=== PATIENT | male | born 1955 | race African-American/Black ===

== ENCOUNTER 2023-05-06 12:39 | Outpatient (REF) | payer OTHER, SELFPAY ==
[2023-05-06 14:55] LABS: MANUAL DIFF FLAG NO
[2023-05-06 15:00] LABS: Basophils Percent Auto 0.5 % (0-2); Eosinophils Absolute Auto 0.1 X10*3/uL (0.0-0.4); Eosinophils Percent Auto 1.7 % (0-4); Hematocrit 38.7 % (42.0-52.0); Hemoglobin 12.8 g/dl (14.0-18.0); Imm Gran Abs Auto 0.05 X10*3/uL (0.00-0.03); Imm Gran Pct Auto 0.8 % (0.0-0.4); Lymphocytes Absolute Auto 1.6 X10*3/uL (1.2-4.9); Lymphocytes Percent Auto 27.1 % (20-40); Mean Corpuscular HGB Conc 33.1 g/dl (31.0-36.0); Mean Corpuscular Hemoglobin 28.9 pg (27.0-33.0); Mean Corpuscular Volume 87.4 fL (80.0-98.0); Mean Platelet Volume 12.2 fL (9.4-12.4); Monocytes Absolute Auto 0.7 X10*3/uL (0.1-1.2); Monocytes Percent Auto 12.2 % (2-11); Neutrophils Absolute Auto 3.5 x10*3/uL (2.0-8.3); Neutrophils Percent Auto 57.7 % (45-73); Platelet Count 195 X10*3/uL (160-400); Red Blood Count 4.43 X10*6/uL (4.60-5.80); White Blood Count 6.1 X10*3/uL (4.8-10.8)
[2023-05-06 15:02] LABS: Appearance Urine Clear; Color Urine Yellow; Glucose Urine UA >=1000 mg/dL (Negative); Leukocyte Esterase Urine Negative (Negative); Nitrite Urine Negative (Negative); PH 5.5 (5.0-9.0); Specific Gravity - Urine >= 1.030 (1.005-1.025); UMIC TRIGGER UA YES; Urine Blood Negative (Negative); Urine Ketones Negative (Negative); Urine Protein Negative (Neg-Trace)
[2023-05-06 15:19] LABS: Bacteria Urine None Seen (None Seen); Hyaline Casts Urine 0-2 /LPF (0-2); RBC Urine 0-2 /HPF (0-2); Squamous Epithelial Cell Urine 0-2 /HPF (0-2); WBC Urine 0-5 /HPF (0-5)
[2023-05-06 15:32] LABS: Alanine Aminotransferase 25 U/L (0-40); Albumin Level 4.3 g/dL (3.5-5.0); Alkaline Phosphatase 122 U/L (39-117); Anion Gap 15 (12-20); Aspartate Amino Transferase 23 U/L (5-37); Bilirubin Direct 0.2 mg/dL (0.0-0.5); Bilirubin Total 0.5 mg/dL (0.0-1.0); Blood Urea Nitrogen 16 mg/dL (9-16); Calcium 9.3 mg/dL (8.4-10.2); Carbon Dioxide 23 mmol/L (22-29); Chloride 96 mmol/L (96-108); Cholesterol 148 mg/dL (<200); Estimated Glomerular Filt Rate 54; Glucose Random 619 mg/dL (60-115); HDL Cholesterol 30 mg/dL (>40); LDL Cholesterol Calculated 39 mg/dL (<100); Potassium 4.8 mmol/L (3.3-5.1); Sodium 129 mmol/L (135-145); Total Protein 7.7 g/dL (6.5-8.0); Triglycerides 397 mg/dL (<150)
[2023-05-06 15:33] LABS: Creatinine Urine 37.47 mg/dL; Total Protein Urine Random < 7 mg/dL (<12)
== END 2023-05-06 12:40 | disposition home or self-care (01) ==
LOC: HO.CHCLDS 12:39
PROVIDERS: Visit Provider Internal Medicine
DX: E11.65 Type 2 diabetes mellitus with hyperglycemia (principal)
CPT/HCPCS: 36415; 80048; 80061; 80076; 81001; 82570; 84156; 85025

== ENCOUNTER 2025-04-09 09:26 | Outpatient (REF) | payer OTHER, SELFPAY ==
--- OUTSIDE RECORDS SUMMARY | 2025-04-05 08:45 | XMS_ITS | Encounter Summary ---
Author Organization [employer] Address [address] [facility] [address] [place] [address] Care Team Providers Care Conciliator Name Role Phone Yaya Alcazar MD Unavailable + Yaya Alcazar MD Primary Care Prov ider Encounter Details Date Type Department Care Team (Late st Contact Info) Description 04/05/2025 8:45 AM EDT Office Visit [facility] PEDS [address], [place] [phone] Yyaa Alcazar MD [address] [place], [place] [phone] Primary hypertension; Type 2 diabetes mellitus with hyperglycemia, without long-term current use of insulin ([facility]); Dietary counseling; Exercise counseling Social History Tobacco Use Types Packs/Day Years Used Date Smoking Tobacco: Never Passive Smoke Exposure: Never Smokeless Tobacco: Never Alcohol Use Standard Drinks/Week Comments Never 0 (1 standard drink = 0.6 oz pur e alcohol) Depression Answer Date Recorded Patient Health Questionnaire-9 Score 0 10/15/2022 Housing Stability Answer Date Recorded What is your housing situation today? I have sharri hayes 05/05/[address] you li ve. Do you have problems with any of the following? None of the above 05/05/2023 Food Insecurity Answer Date Recorded Within the past 12 months, y ou worried that your food would run out before you got money to buy more: Never True 05/05/2023 Within the past 12 months,th e food you bought just didn't last and you didn't have enough money to get more: Never True Transportation Answer Date Recorded In the past 12 months, has l ack of transportation kept you from medical appts, meetings, work or from getting things needed for daily living? No 05/05/2023 Utilities Answer Date Recorded In the past 12 months, has t he electric, gas, oil or water company threatened to shut off services in your home? No 05/05/2023 Depression Answer Date Recorded Patient Health Questionnaire-2 Score 0 10/15/2022 Sex and Gender Information Value Date Recorded Sex Assigned at Male 05/10/2022 10:36 AM EDT Legal Sex Male 10:36 AM EDT Gender Identity Male 05/10/2022 10:36 AM EDT Sexual Orientation Straight 05/10/2022 10 :36 AM EDT documented as of this encounter Last Filed Vital Signs Vital Sign Reading Time Taken Comments Blood Pressure 144/70 04/05/2025 9:15 AM EDT Pulse 80 04/05/2025 9:15 AM EDT Temperature 36.9 C (98.4 F) 04/05/2025 9:15 AM EDT Respiratory Rate 20 04/05/2025 9:15 AM EDT Oxygen Saturation - - Inhaled Oxygen Concentration - - Weight 105 kg (231 lb) 04/05/2025 9:15 AM EDT Height 175.3 cm (5' 9 ) 04/05/2025 9:15 AM EDT Body Mass Index 34.11 04/05/2025 9:15 AM EDT documented in this encounter Progress Notes * Yaya Hubbard MD - 04/05/2025 8:45 AM EDT Subjective Patient ID: Garrison Blackman is a 70 y.o. male who presents for No chief complaint on file.. Hypertension This is a chronic problem. The problem is controlled. Pertinent negatives include no chest pain, headaches, palpitations or shortness of breath. Review of Systems Respiratory: Negative for shortness of breath. Cardiovascular: Negative for chest pain and palpitations. Neurological: Negative for headaches. Objective Physical Exam Constitutional: Appearance: Normal appearance. HENT: Right Ear: Tympanic membrane, ear canal and external ear normal. There is no impacted cerumen. Left Ear: Tympanic membrane, ear canal and external ear normal. There is no impacted cerumen. Cardiovascular: Rate and Rhythm: Normal rate and regular rhythm. Pulses: Dorsalis pedis pulses are 1+ on the right side and 1+ on the left side. Posterior tibial pulses are 1+ on the right side and 1+ on the left side. Heart sounds: No murmur heard. Pulmonary: Effort: Pulmonary effort is normal. No respiratory distress. Breath sounds: No stridor. No wheezing or rhonchi. Abdominal: General: Abdomen is flat. There is no distension. Palpations: There is no mass. Tenderness: There is no abdominal tenderness. There is no guarding or rebound. Hernia: No hernia is present. Musculoskeletal: General: No swelling or tenderness. Normal range of motion. Cervical back: Normal range of motion. No rigidity or tenderness. Right foot: Normal range of motion. No deformity or foot drop. Left foot: Normal range of motion. No deformity or foot drop. Feet: Right foot: Protective Sensation: 7 sites tested. 7 sites sensed. Skin integrity: No ulcer, blister, callus or fissure. Toenail Condition: Fungal disease present. Left foot: Protective Sensation: 7 sites tested. 7 sites sensed. Skin integrity: No ulcer, blister, callus or fissure. Toenail Condition: Fungal disease present. Lymphadenopathy: Cervical: No cervical adenopathy. Skin: General: Skin is warm. Coloration: Skin is not jaundiced or pale. Neurological: General: No focal deficit present. Mental Status: He is alert and oriented to person, place, and time. Psychiatric: Mood and Affect: Mood normal. Behavior: Behavior normal. Assessment/Plan Problem List Items Addressed This Visit Primary hypertension Slightly elevated, encouraged to keep a low sodium diet, keep blood pressure log, follow up in 3 month Relevant Medications lisinopril 20 MG tablet Type 2 diabetes mellitus with hyperglycemia, without long-term current use of insulin ([facility]) Controlled, keep low carb no sugar diet, foot examination was unreamarkable, follow up in 3 months Relevant Medications lisinopril 20 MG tablet metFORMIN (Glucophage) 1000 MG tablet Other Relevant Orders CBC auto differential Comprehensive Metabolic Panel Lipid Panel, Standard Albumin, Random Urine W/Creatinine TSH W/Reflex to FT4 POCT Glucose (Completed) POCT Hgb A1c (Completed) Other Visit Diagnoses Dietary counseling Relevant Medications metFORMIN (Glucophage) 1000 MG tablet Exercise counseling Relevant Medications metFORMIN (Glucophage) 1000 MG tablet documented in this encounter Miscellaneous Notes * Assessment & Plan Note - Yaya Hubbard MD - 04/05/2025 9:50 AM EDTAssociated Problem(s): Type 2 diabetes mellitus with hyperglycemia, without long-term current use of insulin ([facility]) Controlled, keep low carb no sugar diet, foot examination was unreamarkable, follow up in 3 months * Assessment & Plan Note - Yaya Hubbard MD - 04/05/2025 9:49 AM EDTAssociated Problem(s): Primary hypertension Slightly elevated, encouraged to keep a low sodium diet, keep blood pressure log, follow up in 3 month documented in this encounter Plan of Treatment Scheduled Orders Name Type Priority Associated Diagnoses Orde r Schedule CBC auto differential Lab Routine Type 2 diabetes mellitus with hyperglycemia, without long-term current use of insulin (CMS/HCC) Expected: 04/05/2025 (Approximate), Expires: 04/05/2026 Comprehensive Metabolic Panel Lab Routine Type 2 diabetes mellitus with hyperglycemia, without long-term current use of insulin (CMS/HCC) Expected: 04/05/2025 (Approximate), Expires: 04/05/2026 Lipid Panel, Standard Lab Routine Type 2 diabetes mellitus with hyperglycemia, without long-term current use of insulin (CMS/HCC) Expected: 04/05/2025 (Approximate), Expires: 04/05/2026 Albumin, Random Urine W/Creatinine Lab Routine Type 2 diabetes mellitus with hyperglycemia, without long-term current use of insulin (CMS/HCC) Expected: 04/05/2025 (Approximate), Expires: 04/05/2026 TSH W/Reflex to FT4 Lab Routine Type 2 diabetes mellitus with hyperglycemia, without long-term current use of insulin (CMS/HCC) Expected: 04/05/2025 (Approximate), Expires: 04/05/2026 documented as of this encounter Procedures Procedure Name Priority Date/Time Associated Diagnosis Comments POCT GLYCATED HEMOGLOBIN, TOTAL Routine 04/05/2025 9:19 AM EDT Type 2 diabetes mellitus with hyperglycemia, without long-term current use of insulin ([facility]) POCT GLUCOSE Routine 04/05/2025 9:19 AM EDT Type 2 diabetes mellitus with hyperglycemia, without long-term current use of insulin ([facility]) documented in this encounter Results * (ABNORMAL) POCT Hgb A1c (04/05/2025 9:19 AM EDT) Hemoglobin A1C 6.6(A) 4.0 - 5.7 % QC Media Lot # [id number] Lot# Expiration Date Blood 04/05/2025 9:19 AM EDT Yaya Hubbard MD POINT OF C ARE TEST ENTER/EDIT ORDERABLES Edited Result - Final * POCT Glucose (04/05/2025 9:19 AM EDT) Glucose Blood, POC 157 60 - 200 mg/dL QC Media Lot # [id number] Lot# Expiration Date Blood Capillary blood specimen / Unknown 04/05/2025 9:19 AM EDT Yaya Hubbard MD POINT OF CARE TEST ENTER/EDIT ORDERABLES Final Result documented in this encounter Visit Diagnoses Diagnosis Primary hypertension Unspecified essential hypertension Type 2 diabetes mellitus with hyperglycemia, without long-term current use of insulin ([facility]) Dietary counseling Dietary surveillance and counseling Exercise counseling documented in this encounter Additional Health Concerns Assessment Noted Time PHQ-9 Depression Total Score: 0 10/16/19 23 9:37 AM EDT documented as of this encounter Care Teams Conciliator Relationship Specialty Start Date End Date Yaya Alcazar MD [address] [place] [address] PCP - General Internal Medicine 09/13/22 Yaya Alcazar MD [address] [place] [address] Internal Medicine 07/11/21 documented as of this encounter
--- OUTSIDE RECORDS SUMMARY | 2025-04-09 10:15 | XMS_ITS | Encounter Summary ---
Author Organization [employer] Address [address] [place] [address] Care Team Providers Care Printer Slotter Operator Name Role Phone Yaya Alcazar MD Unavailable + Yaya Alcazar MD Primary Care Prov ider Encounter Details Date Type Department Care Team (Latest Contact Info) Description 04/05/2025 Travel Social History Tobacco Use Types Packs/Day Years [...] AM EDT documented as of this encounter Plan of Treatment Not on file documented as of this encounter Visit Diagnoses Not on filedocumented in this encounter Additional Health Concerns Assessment Noted Time PHQ-9 Depression Total Score: 0 10/16/19 23 9:37 AM EDT documented as of this encounter Care Teams Printer Slotter Operator Relationship Specialty Start Date End Date Yaya Alcazar MD [address] [place] [address] PCP - General Internal Medicine 09/13/22 Yaya Alcazar MD [address] [place] [address] Internal Medicine 07/11/21 documented as of this encounter
--- OUTSIDE RECORDS SUMMARY | 2025-04-09 10:15 | XMS_ITS | Encounter Summary ---
Author Organization [employer] Address [address] [facility] [address] [place] [address] Care Team Providers Care Scallop Dredger Name Role Phone Yaya Alcazar MD Unavailable + Yaya Alcazar MD Primary Care Prov ider Reason for Visit * Reason Onset Date Comments chart prep 04/04/2025 Encounter Details Date Type Department Care Team ([facility] st Contact Info) Description 04/04/2025 Telephone [facility] MED [facility] PEDS [address] [place], [place] [phone] Yaya Alcazar MD [address] [place], [place] [phone] chart prep Social History Tobacco Use Types Packs/Day Years [...] Time PHQ-9 Depression Total Score: 0 10/16/19 9:37 AM EDT documented as of this encounter Care Teams Scallop Dredger Relationship Specialty Start Date End Date Yaya Alcazar MD [address] [place] [address] PCP - General Internal Medicine 09/13/22 Yaya Alcazar MD [address] [place] [address] Internal Medicine 07/11/21 documented as of this encounter
--- OUTSIDE RECORDS SUMMARY | 2025-04-09 10:15 | XMS_ITS | Encounter Summary ---
Author Organization [employer] Address [address] [facility] [address] [place] [address] Care Team Providers Care Booking Police Officer Name Role Phone Yaya Alcazar MD Unavailable + Yaya Alcazar MD Primary Care Prov ider Reason for Visit * Reason Comments Med Refill Encounter Details Date Type Department Care Team ([facility] st Contact Info) Description 09/09/2023 Refill [facility] MED [facility] PEDS [address] [place], [place] [phone] Yaya Alcazar MD [address] [place], [place] [phone] Primary hypertension Social History Tobacco Use Types Packs/Day Years [...] enough money to get more: Never True 10/ Transportation Answer Date Recorded In the past [...] documented as of this encounter Visit Diagnoses Diagnosis Primary hypertension Unspecified essential hypertension documented in this encounter Additional Health Concerns Assessment Noted Time PHQ-9 Depression Total Score: 0 10/16/19 23 9:37 AM EDT documented as of this encounter Care Teams Booking Police Officer Relationship Specialty Start Date End Date Yaya Alcazar MD [address] [place] [address] PCP - General Internal Medicine 09/13/22 Yaya Alcazar MD [address] [place] [address] Internal Medicine 07/11/21 documented as of this encounter
--- OUTSIDE RECORDS SUMMARY | 2025-04-09 10:15 | XMS_ITS | Encounter Summary ---
Author Organization [employer] Address [address] [facility] [address] [place] [address] Care Team Providers Care Medical Social Consultant Name Role Phone Yaya Alcazar MD Unavailable + Yaay Alcazar MD Primary Care Prov ider Encounter Details Date Type Department Care Team (Late st Contact Info) Description 10/02/2024 Orders Only [facility] [address] [place] [address] Provider, MD Polly Social History Tobacco Use Types Packs/Day Years [...] on file documented as of this encounter Procedures Procedure Name Priority Date/Time Associated Diagnosis Comments DIABETES EYE EXAM Routine 09/28/2024 3:54 PM EDT documented in this encounter Results * Diabetes Eye Exam (09/28/2024 3:54 PM EDT) Historical Provider HEALTH MAINTENANCE Final Result documented in this encounter Visit Diagnoses Not on filedocumented in this encounter Additional Health Concerns Assessment Noted Time PHQ-9 Depression Total Score: 0 10/16/19 9:37 AM EDT documented as of this encounter Care Teams Medical Social Consultant Relationship Specialty Start Date End Date Yaya Alcazar MD [address] [place] [address] PCP - General Internal Medicine 09/13/22 Yaya Alcazar MD [address] [place] [address] Internal Medicine 07/11/21 documented as of this encounter
--- OUTSIDE RECORDS SUMMARY | 2025-04-09 10:16 | XMS_ITS | Clinical Summary ---
Author Organization [employer] Address [address] [place] [address] Care Team Providers Care Field Director Name Role Phone Yaya Alcazar MD Unavailable + Yaya Alcazar MD Primary Care Prov ider Allergies No known active allergies Medications Blood Pressure kitIndications: Elevated blood pressure reading 1 Units 2 times daily. 1 kit 08/20/19 23 Active Clotrimazole Anti-Fungal 1 % cream APPLY TO AFFECTED AREA(S) AND SURROUNDING AREA(S) TWICE DAILY IN THE MORNING AND EVENING 03/23/20 22 Active polyvinyl alcohol (Liquifilm Tears) 1.4 % ophthalmic solution 1 drop. 04/03/20 19 Active Blood Glucose Monitoring Suppl (FreeStyle Lite) w/Device kit 1 each in the morning. Check fasting blood sugar after sleep. 1 kit 05/06/20 23 Active Alcohol Swabs (Alcohol Prep) pads 1 each in the morning. 1 each 11 05/06/20 23 Active Lancets Ultra Thin 30G misc 1 each 3 times daily. 200 each 09/28/19 24 Active FREESTYLE LITE test strip Use as instructed 200 each 09/28/19 24 Active lisinopril 20 MG tabletIndicatio ns:Primary hypertension Take 1 tablet (20 mg) by mouth in the morning. 90 tablet 3 04/05/20 25 2025 Active metFORMIN (Glucophage) 1000 MG tablet Take 1 tablet (1,000 mg) by mouth with breakfast and with evening meal. 180 tablet 3 04/05/20 25 2025 Active lisinopril 20 MG tabletIndicatio ns:Primary hypertension Take 1 tablet (20 mg) by mouth in the morning. 90 tablet 3 03/23/20 24 2024 Discontinued(R eorder (will not trigger notification to Pharmacy)) metFORMIN (Glucophage) 1000 MG tablet Take 1 tablet (1,000 mg) by mouth with breakfast and with evening meal. 180 tablet 3 03/23/20 24 2024 Discontinued(R eorder (will not trigger notification to Pharmacy)) Active Problems Problem Noted Date Diagnosed Date Type 2 diabetes mellitus wit h hyperglycemia, without long-term current use of insulin 06/24/2023 Assessment & Plan (04/05/2025 9:50 AM EDT): Controlled, keep low carb no sugar diet, foot examination was unreamarkable, follow up in 3 months Assessment & Plan (03/23/2024 10:41 AM EDT): Advised Low sugar and Low carb diet. Counseled regarding self-monitoring of blood glucose. Counseled re: potential co-morbidities including cardiovascular disease. Counseled re: potential co-morbidities include neuropathy and retinopathy. Counseled re: potential co-morbidities include nephropathy. No changes will be made on treatment Assessment & Plan (09/23/2023 1:26 PM EDT): Controlled, A1c <7.0%, continue currnt medications, no episode of hypoglycemia, follow up in 3 month Assessment & Plan (07/24/2023 7:33 PM EST): Tolerating metformin, will increase dose to 1000mg bid, and will add lantus 10 units, reinforced low carb/no sugar diet, follow up in 1 month Assessment & Plan (06/24/2023 11:58 AM EST): Improving, at home fbs ranges from 110-140's, will increase lantus to 15 units, follow up in 3 months Primary hypertension 09/13/2022 Assessment & Plan (04/05/2025 9:49 AM EDT): Slightly elevated, encouraged to keep a low sodium diet, keep blood pressure log, follow up in 3 month Assessment & Plan (03/23/2024 10:41 AM EDT): Maintain a low-sodium diet (less than 2 grams per day). Maintain a regular cardiovascular exercise program. Advised to maintain a low-fat, low-cholesterol diet. Counseled regarding importance of weight loss. Counseled re: potential co-morbidities including cardiovascular disease. No changes will be made on treatment Assessment & Plan (09/23/2023 1:25 PM EDT): Controlled, reinforced low sodium diet and exercise as tolerated, follow up in 4 months Assessment & Plan (07/24/2023 7:34 PM EST): Controlled, continue lisinopril, low sodium and exercise reccomended Assessment & Plan (06/24/2023 11:58 AM EST): Controlled, continue lisinopril, reinforced low sodium diet and exercise as tolerated, follow up in 3 months Assessment & Plan (10/15/2022 10:29 AM EDT): Controlled, reinforced low sodium diet and exercise as tolerated, continue lisinopril 10mg. Bp reading as follow: 132/67-123/61-133/65-134/59-134/61-139/73-132/63 Assessment & Plan (09/13/2022 1:53 PM EST): Uncontrolled following ADA guidelines (diet controlled DM), will start lisinopril 10 mg. Already has f/up setup with PCP Lab Results Component Value Date CREATININE 1.09 08/20/2022 Lab Results Component Value Date HGBA1C 5.5 08/20/2022 Lab Results Component Value Date K 4.9 08/20/2022 Pre-diabetes 08/20/2022 Assessment & Plan (08/20/2022 2:19 PM EST): a1c 5.5%, reinforced importance of diet and exercise, keep low carb/sugar diet., will place order for new labs for follow up. Elevated blood pressure reading 08/20/2022 Assessment & Plan (08/20/2022 2:18 PM EST): Will order a bp reader, told to keep a bp log, reinforced low sodium diet and exercise as tolerated, will follow up in 1 month. Screening for colon cancer 08/20/2022 Assessment & Plan (06/24/2023 11:59 AM EST): Will send oguard, risk vs benefits discussed Assessment & Plan (08/20/2022 2:20 PM EST): Ifit test done on 04/01 was negative. Encounters Date Type Department Care Team Description 04/05/2025 8:45 AM EDT Office Visit [facility] [address] [place] [address] Yaya Alcazar MD Primary hypertension; Type 2 diabetes mellitus with hyperglycemia, without long-term current use of insulin ([facility]); Dietary counseling; Exercise counseling 04/05/2025 Travel 04/04/2025 Telephone [facility] [address] [place] [address] Yaya Alcazar MD chart prep 01/16/2025 Telephone [facility] [address] [place] [address] Yaya Alcazar MD Nurse Triage from Last 3 Months Immunizations Immunization Administration Dates Next Due Influenza High-dose Quadriva lent Preservative Free 06/24/2023,04/30/2022,05/23/2021 Influenza Injectable Quadriv alant Preservative Free IIV4 MDCK 04/17/2020 Influenza injectable quadriv alent IIV4 with preservative 05/18/2019,05/10/2018 Influenza, High Dose Seasona l, Preservative Free 03/23/2024 Pneumococcal Conjugate PCV 20 06/24/2023 Pneumococcal Polysaccharide PPSV23 09/13/2018 Tdap 05/18/2019 Zoster, Recombinant 08/04/2020,06/18/2019 Social History Tobacco Use Types Packs/Day Years Used Date Smoking Tobacco: Never Passive Smoke Exposure: Never Smokeless Tobacco: Never Tobacco Cessation:Counseling Given: Not Answered Alcohol Use Standard Drinks/Week Comments Never 0 [...] t he electric, gas, oil or water Revizer threatened to shut off services in your home? No 05/05/2023 Depression Answer Date Recorded Patient Health Questionnaire-2 Score 0 10/15/2022 Sex and Gender Information Value Date Recorded Sex Assigned at Male 05/10/2022 10:36 AM EDT Legal Sex Male 10:36 AM EDT Gender Identity Male 05/10/2022 10:36 AM EDT Sexual Orientation Straight 05/10/2022 10 :36 AM EDT Last Filed Vital Signs Vital Sign Reading Time Taken Comments Blood Pressure 144/70 04/05/2025 9:15 AM EDT Pulse 80 04/05/2025 9:15 AM EDT Temperature 36.9 C (98.4 F) 04/05/2025 9:15 AM EDT Respiratory Rate 20 04/05/2025 9:15 AM EDT Oxygen Saturation 98% 09/13/2022 1:36 PM EST Inhaled Oxygen Concentration - - Weight 105 kg (231 lb) 04/05/2025 9:15 AM EDT Height 175.3 cm (5' 9 ) 04/05/2025 9:15 AM EDT Body Mass Index 34.11 04/05/2025 9:15 AM EDT Plan of Treatment Health Maintenance Due Date Last Done Comments CT Colonography 1956 Colonoscopy 1956 FIT 1956 Sigmoidoscopy 1956 Alcohol/Substance Use Screening 1968 SDOH Screening 08/20/2023 08/20/2022 Depression Screening 10/16/2023 10/15/2022, 10/16/19 23 Diabetes: Urine Protein Screening 05/06/2024 05/06/2023 Lipid Panel 05/06/2024 05/06/2023, 08/11, 03/23/2022, Additional history exists FOBT 07/08/2024 07/08/2023 COVID-19 Vaccine ( season) 2025 05/30/2021, 10/23/2020, 10/01/2020 Tobacco Screening 03/23/2025 03/23/2024 Diabetes: Hemoglobin A1C 10/03/2025 025, 03/23/2024, 09/23/2023, Additional history exists Diabetes: Foot Exam 04/05/2026 04/05/2025, 04/05/2025, 04/05/2025, Additional history exists Colorectal Cancer Screening 07/08/2026 FIT DNA/Cologuard 07/08/2026 07/08/2023 Eye Exam 09/28/2026 09/28/2024 DTaP/Tdap/Td Vaccines (2 - Td or Tdap) 05/18/2029 05/18/2019 RSV Patients and Patients Aged 60 years or older (1 - 1-dose 75+ series) 2031 Zoster Vaccines Completed 08/04/2020, 06/18/2019 Hepatitis C Screening Completed 08/20/2022, 022 Pneumococcal Vaccine: 50+ Years Completed 06/24/2023, 09/13/2018 Influenza Vaccine Completed 03/26/2025, , 06/24/2023, Additional history exists HIB Vaccines Aged Out No longer eligi ble based on patient's age to complete this topic HPV Vaccines Aged Out No longer eligi ble based on patient's age to complete this topic Hepatitis A Vaccines Aged Out No long er eligible based on patient's age to complete this topic Hepatitis B Vaccines Aged Out No long er eligible based on patient's age to complete this topic IPV Vaccines Aged Out No longer eligi ble based on patient's age to complete this topic Meningococcal B Vaccine Aged Out No l onger eligible based on patient's age to complete this topic Meningococcal Vaccine Aged Out No armani maryana eligible based on patient's age to complete this topic RSV under 20 months Aged Out No longe r eligible based on patient's age to complete this topic Rotavirus Vaccines Aged Out No longer eligible based on patient's age to complete this topic Procedures Procedure Name Priority Date/Time Associated Diagnosis Comments POCT GLYCATED HEMOGLOBIN, TOTAL Routine 04/05/2025 9:19 AM EDT Type 2 diabetes mellitus with hyperglycemia, without long-term current use of insulin (CMS/HCC) POCT GLUCOSE Routine 04/05/2025 9:19 AM EDT Type 2 diabetes mellitus with hyperglycemia, without long-term current use of insulin (CMS/HCC) HM DIABETES EYE EXAM Routine 09/28/2024 3:54 PM EDT LAB COLOGUARD COLON CANCER SCREEN Routine 07/08/2023 10:26 AM EST Screening for colon cancer LIPID PANEL, STANDARD Routine 05/06/2023 12:44 PM EDT Type 2 diabetes mellitus with hyperglycemia, without long-term current use of insulin (CMS/HCC) PROTEIN CREATININE RATIO, URINE Routine 05/06/2023 12:00 AM EDT Type 2 diabetes mellitus with hyperglycemia, without long-term current use of insulin (CMS/HCC) HEPATITIS C AB W/REFL TO HCV RNA, QN, PCR Routine 08/20/2022 11:19 AM EST Pre-diabetes Elevated blood pressure reading from Last 3 Months or Most Recently Relevant to Health Maintenance Results * (ABNORMAL) POCT Hgb A1c (04/05/2025 9:19 AM EDT) Hemoglobin A1C 6.6(A) 4.0 - 5.7 % QC Media Lot # [id number] Lot# Expiration Date Blood 04/05/2025 9:19 AM EDT us Yaya Hubbard MD POINT OF C ARE TEST ENTER/EDIT ORDERABLES Edited Result - Final * POCT Glucose (04/05/2025 9:19 AM EDT) Glucose Blood, POC 157 60 - 200 mg/dL QC Media Lot # [id number] Lot# Expiration Date Blood Capillary blood specimen / Unknown 04/05/2025 9:19 AM EDT Yaya Hubbard MD POINT OF CARE TEST ENTER/EDIT ORDERABLES Final Result * Diabetes Eye Exam (09/28/2024 3:54 PM EDT) [facility] Provider HEALTH MAINTENANCE Final Result * Cologuard?? colon cancer screening (07/08/2023 10:26 AM EST) Cologuard Result Negative Negative 07/13/19 24 6:23 PM EST [facility] (CLIA #:[id number]) Comment: NEGATIVE TEST RESULT. A negative Cologuard result indicates a low likelihood that a colorectal cancer (CRC) or advanced adenoma (adenomatous polyps with more advanced pre-malignant features) is present. The chance that a person with a negative Cologuard test has a colorectal cancer is less than 1 in 1500 (negative predictive value >99.9%) or has an advanced adenoma is less than 5.3% (negative predictive value 94.7%). These data are based on a prospective cross-sectional study of 10,000 individuals at average risk for colorectal cancer who were screened with both Cologuard and colonoscopy. (Liu Bashir al, N Engl J Med 2014;370(14):8618-5201) The normal value (reference range) for this assay is negative. COLOGUARD RE-SCREENING RECOMMENDATION: Periodic colorectal cancer screening is an important part of preventive healthcare for asymptomatic individuals at average risk for colorectal cancer. Following a negative Cologuard result, the [place] [employer] and U.S. Multi-Society Task Force screening guidelines recommend a Cologuard re-screening interval of 3 years. References: [place] [employer] Guideline for Colorectal Cancer Screening: https://www.cancer.org/cancer/xcmqp-ohjkvm-sxfbct/blukejzjv-lnswsffpi-eqmzdom/ac s-rec ommendations.html.; Peña DK, Fredi LANGFORD, Yanick RivasK, Colorectal Cancer Screening: Recommendations for Physicians and Patients from the U.S. Multi-Society Task Force on Colorectal Cancer Screening , Am J Gastroenterology 2017; 112:6993-8259. TEST DESCRIPTION: Composite algorithmic analysis of stool DNA-biomarkers with hemoglobin immunoassay. Quantitative values of individual biomarkers are not reportable and are not associated with individual biomarker result reference ranges. Cologuard is intended for colorectal cancer screening of adults of either sex, 45 years or older, who are at average-risk for colorectal cancer (CRC). Cologuard has been approved for use by the U.S. FDA. The performance of Cologuard was established in a cross sectional study of average-risk adults aged 50-84. Cologuard performance in patients ages 45 to 49 years was estimated by sub-group analysis of near-age groups. Colonoscopies performed for a positive result may find as the most clinically significant lesion: colorectal cancer [4.0%], advanced adenoma (including sessile serrated polyps greater than or equal to 1cm diameter) [20%] or non- advanced adenoma [31%]; or no colorectal neoplasia [45%]. These estimates are derived from a prospective cross-sectional screening study of 10,000 individuals at average risk for colorectal cancer who were screened with both Cologuard and colonoscopy. (Liu Moreland et al, N Engl J Med 2014;370(14):8644-0479.) Cologuard may produce a false negative or false positive result (no colorectal cancer or precancerous polyp present at colonoscopy follow up). A negative Cologuard test result does not guarantee the absence of CRC or advanced adenoma (pre-cancer). The current Cologuard screening interval is every 3 years. ([place] [employer] and U.S. Multi-Society Task Force). Cologuard performance data in a 10,000 patient pivotal study using colonoscopy as the reference method can be accessed at the following location: www.[employer].com/results. Additional description of the Cologuard test process, warnings and precautions can be found at www.cologuard.com. Stool specimen (specimen) 07/08/2023 10:26 AM EST 07/09/2023 9:23 AM EST Yaya Hubbard MD LAB MOLECULAR DIAG NOSTICS ORDERABLES Final Result [facility] (CLIA #:[id number]) [address] [place] [address], * (ABNORMAL) Lipid Panel, Standard (05/06/2023 12:44 PM EDT) Triglycerides 397(H) <150 mg/dL [facility] Comment:Desirable Triglyceri de: less than 150 mg/dLBorderline High Triglyceride 150-199 mg/dLHigh Triglyceride: 200-499 mg/dLVery High Triglyceride: greater than or equal to 5OO mg/dL Cholesterol 148 <200 mg/dL [facility] Comment:Desirable Cholestero l: less than 200 mg/dLBorderline High Cholesterol: 200-239 mg/dLHigh Cholesterol: greater than 239 mg/dL LDL Cholesterol Calculated 39 <100 mg/dL [facility] Comment:Desirable LDL: less than 100 mg/dLNear Optimal/Above Optimal LDL: 110- 129 mg/dLBorderline High LDL: 130-159 mg/dLHigh LDL: 160-189 mg/dLVery High LDL: greater than or equal to 190 mg/dL HDL Cholesterol 30(L) >40 mg/dL [facility] Comment:Desirable HDL: great er than 40 mg/dL Note: This HDL assay may give artificially low results in patients with liver disease. Blood Venous blood specimen / Unknown 05/06/2023 12:44 PM EDT 05/06/2023 2:51 PM EDT Kelin Schaffer MD LAB BLOOD ORDERABLES Final Re sult Performing Organization Address [facility]/ZIP Co de Phone Number [facility] [address] [place] [phone] * Protein Creatinine Ratio, Urine (05/06/2023 12:00 AM EDT) Creatinine, Urine 37.47 mg/dL [facility] Protein, Total, Random Urine <7 <12 mg/dL [facility] Protein/Creatin ine Ratio, Ur TNP <0.2 [facility] Comment:Unable to calculate urine protein creatinine ratio due tolow creatinine or protein result. 05/06/2023 05/06/2023 Result [facility] Kelin Schaffer MD LAB URINE ORDERABLES Final Re sult Performing Organization Address [facility] Co de Phone Number [facility] [address] [place] [phone] * Hepatitis C Antibody with Reflex to HCV, RNA, Quantitative, Real-Time PCR (08/20/2022 11:19 AM EST) Hepatitis C Antibody NON-REACT RAUL NON-REACT RAUL [facility] [place] [employer] Index 0.04 <1.00 [facility] [place] [employer] Comment: HCV antibody was non-reactive. There is no laboratory evidence of HCV infection. In most cases, no further action is required. However, if recent HCV exposure is suspected, a test for HCV RNA (test code 60744) is suggested. For additional information please refer to http://education.invendo medical/faq/HTV00g0 (This link is being provided for informational/ educational purposes only.) Blood Venous blood specimen / Unknown 08/20/2022 11:19 AM EST 08/20/2022 11:20 AM EST Narrative [facility] - 08/21/2022 3:58 AM EST FASTING:NO FASTING: NO Yaya Hubbard MD LAB BLOOD ORDERABL ES Final Result [facility] [address] [place] [address] [facility] [address] [place] [address] from Last 3 Months or Most Recently Relevant to Health Maintenance Insurance [employer] Care Teams Field Director Relationship Specialty Start Date End Date Yaya Alcazar MD [address] [place] [address] PCP - General Internal Medicine 09/13/22 Yaya Alcazar MD [address] [facility] [place] [address] Internal Medicine 07/11/21
[2025-04-09 14:16] LABS: MANUAL DIFF FLAG NO
[2025-04-09 14:19] LABS: Hematocrit 35.4 % (42.0-52.0); Hemoglobin 11.4 g/dl (14.0-18.0); Imm Gran Abs Auto 0.02 X10*3/uL (0.00-0.03); Imm Gran Pct Auto 0.3 % (0.0-0.4); Lymphocytes Absolute Auto 2.0 X10*3/uL (1.2-4.9); Mean Corpuscular HGB Conc 32.2 g/dl (31.0-36.0); Mean Corpuscular Hemoglobin 29.9 pg (27.0-33.0); Mean Corpuscular Volume 92.9 fL (80.0-98.0); NRBC Abs Auto 0.000 X10*3/uL (0.0-0.012); NRBC Pct Auto 0.0 /100WBC (0.0-0.2); Platelet Count 156 X10*3/uL (160-400); Red Blood Count 3.81 X10*6/uL (4.60-5.80); White Blood Count 6.3 X10*3/uL (4.8-10.8)
[2025-04-09 16:22] LABS: Alanine Aminotransferase 20 U/L (0-40); Albumin Level 4.3 g/dL (3.5-5.0); Alkaline Phosphatase 69 U/L (39-117); Anion Gap 13 (12-20); Aspartate Amino Transferase 44 U/L (5-37); Blood Urea Nitrogen 19 mg/dL (9-16); Calcium 9.3 mg/dL (8.4-10.2); Carbon Dioxide 23 mmol/L (22-29); Chloride 106 mmol/L (96-108); Cholesterol 147 mg/dL (<200); Estimated Glomerular Filt Rate > 60; HDL Cholesterol 26 mg/dL (>40); Potassium 5.1 mmol/L (3.3-5.1); Sodium 137 mmol/L (135-145); Total Protein 7.3 g/dL (6.5-8.0); Triglycerides 362 mg/dL (<150)
[2025-04-09 17:26] LABS: Free T4 (Free Thyroxine) 0.93 ng/dL (0.71-1.85)
[2025-04-09 23:44] LABS: Microalbum/Creatinine Ratio Ur 59.3 ug/mg cr (<30)
== END 2025-04-09 09:27 | disposition home or self-care (01) ==
LOC: HO.CHCLDS 09:26
PROVIDERS: Visit Provider Internal Medicine
DX: E11.65 Type 2 diabetes mellitus with hyperglycemia (principal)
CPT/HCPCS: 36415; 80053; 80061; 82043; 82570; 84439; 84443; 85025